=== PATIENT | male | born 1965 | race Caucasian/White ===

== ENCOUNTER 2017-01-08 13:45 | Emergency (ER) | payer OTHER ==
[~2017-01-08] VITALS: Ht 180.3 cm; Wt 80.0 kg
[~2017-01-08 13:45] MED LIST: PROZ40CA PO; VALP250C PO
[2017-01-08 13:52] VITALS: BP 111/70; PULSE 96; RESP 18; TEMP 98; O2SAT 95
[2017-01-08] MEDS ORDERED: SODIUM CHLOR 0.9% 1000 ML INJ 1,000 ML IV ONE (14:00)
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
== END 2017-01-08 15:53 | disposition home or self-care (01) ==
LOC: NEPC 13:45
DX: F19.10 Other psychoactive substance abuse, uncomplicated (principal); F17.200 Nicotine dependence, unspecified, uncomplicated; Z86.59 Personal history of other mental and behavioral disorders; Z86.69 Personal history of other diseases of the nervous system and sense organs
CPT/HCPCS: 96360; 99284; J7030

== ENCOUNTER 2017-09-17 06:12 | Emergency (ER) | payer SELFPAY ==
[2017-09-17 06:13] VITALS: BP 121/72; PULSE 112; RESP 16; TEMP 98; O2SAT 96
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
[2017-09-17] MEDS ORDERED: KETOROLAC TROMETHAMINE 60 MG/2 ML (IM) VIAL IM ONE (07:15)
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
[2017-09-17] MEDS ORDERED: IBUP-232 PO (08:00)
[2017-09-17 09:05] VITALS: BP 118/68
== END 2017-09-17 09:06 | disposition home or self-care (01) ==
LOC: NEPE 06:12
DX: S20.212A Contusion of left front wall of thorax, initial encounter (principal); Y00.XXXA Assault by blunt object, initial encounter; F31.9 Bipolar disorder, unspecified; F17.200 Nicotine dependence, unspecified, uncomplicated
CPT/HCPCS: 71101; 96372; 99283; J1885

== ENCOUNTER 2017-10-03 12:18 | Emergency (ER) | payer SELFPAY ==
[~2017-10-03 12:18] MED LIST changes: +IBUP-232 PO; -PROZ40CA PO; -VALP250C PO
[2017-10-03 12:20] VITALS: BP 136/80; PULSE 113; RESP 16; TEMP 98.2; O2SAT 98
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
[2017-10-03] MEDS ORDERED: CLINDAMYCIN PHOS 600 MG/4 ML VIAL IM ONE (12:45)
[2017-10-03] MEDS ORDERED: KETOROLAC TROMETHAMINE 60 MG/2 ML (IM) VIAL IM ONE (12:45)
[2017-10-03] MEDS ORDERED: LIDOCAINE 1%/EPINEPHrine 1:100,000 SOLN 20 ML VIAL INFIL ONE ×2 (12:45→13:00)
[2017-10-03] MEDS ORDERED: LIDOCAINE 1%/EPINEPHrine 1:100,000 SOLN 30 ML VIAL ONE (12:48)
[2017-10-03] MEDS ORDERED: CEPH-460 PO (13:08)
[2017-10-03] MEDS ORDERED: BACT800T5 PO (13:08)
[2017-10-03] MEDS ORDERED: IBUP-232 PO (13:09)
== END 2017-10-03 13:47 | disposition home or self-care (01) ==
LOC: NEPD 12:18
DX: L02.01 Cutaneous abscess of face (principal); S00.261A Insect bite (nonvenomous) of right eyelid and periocular area, initial encounter; H00.031 Abscess of right upper eyelid; Z72.0 Tobacco use; W57.XXXA Bitten or stung by nonvenomous insect and other nonvenomous arthropods, initial encounter; Y93.89 Activity, other specified
CPT/HCPCS: 10061; 87070; 96372; 99284; J1885; 87205